=== PATIENT | female | born 1990 | race American Indian/Alaskan Native ===

== ENCOUNTER 2018-09-25 22:02 | Emergency (ER) | payer MEDICAID ==
[2018-09-25 22:09] VITALS: BP 137/86
--- NOTE | 2018-09-25 22:35 | Emergency Department Report ---
Blank Doc - Documentation Documentation: 28 y o female presents to ED cc of low back pain x 2 days no injuries, trauma, fall, worsens with certain mvt and laying on back denies dysuria, Ua/upt reevaluate
[2018-09-25 23:10] LABS: Bilirubin,Urine NEG (Negative); Blood,Urine NEG (Negative); Color,Urine Yellow (Yellow); Mucus,Urine FEW /HPF; Protein,Urine <15 mg/dL mg/dL (Negative); Urobilinogen,Urine < 2.0 mg/dL (<2.0)
[2018-09-25 23:27] LABS: HCG Qualitative,Urine Negative (Negative)
== END 2018-09-25 23:51 | disposition left against medical advice (07) ==
LOC: ED 22:02
DX: M54.5 Low back pain (principal); Z53.21 Procedure and treatment not carried out due to patient leaving prior to being seen by health care provider
CPT/HCPCS: 81001; 81025

== ENCOUNTER 2020-06-03 17:52 | Emergency (ER) | payer MEDICAID ==
[2020-06-03 18:36] VITALS: BP 152/90
== END 2020-06-03 22:00 | disposition left against medical advice (07) ==
LOC: ED 17:52
DX: L02.211 Cutaneous abscess of abdominal wall (principal); R63.1 Polydipsia; R35.0 Frequency of micturition; Z53.21 Procedure and treatment not carried out due to patient leaving prior to being seen by health care provider

== ENCOUNTER 2020-06-10 16:50 | Emergency (ER) | payer MEDICAID ==
[2020-06-10 17:18] VITALS: BP 134/80
--- NOTE | 2020-06-10 17:44 | Emergency Department Report ---
Abscess Boil HPI - HPI Chief Complaint: Skin/Abscess/Foreign Body Stated Complaint: PRIVATE AREA RISING/PAIN Time Seen by Provider: 06/10/20 17:41 Allergies/Adverse Reactions: Allergies Allergy/AdvReac Type Severity Reaction Status Date / Time No Known Allergies Allergy Unverified 09/25/18 22:03 ED Review of Systems ROS: Stated complaint: PRIVATE AREA RISING/PAIN Other details as noted in HPI ED Past Medical Hx - Past Medical History Previous Medical History?: No Hx Hypertension: No Hx CVA: No Hx Heart Attack/AMI: No Hx Congestive Heart Failure: No Hx Diabetes: No Hx Deep Vein Thrombosis: No Hx Pulmonary Embolism: No Hx GERD: No Hx Liver Disease: No Hx Renal Disease: No Hx Sickle Cell Disease: No Hx Arthritis: No Hx Headaches / Migraines: No Hx Seizures: No Hx Kidney Stones: No Hx Psychiatric Treatment: No Hx Asthma: No Hx COPD: No Hx Tuberculosis: No Hx Dementia: No Hx HIV: No - Surgical History Hx Coronary Stent: No Hx Open Heart Surgery: No Hx Pacemaker: No Hx Internal Defibrillator: No Hx Cholecystectomy: No Hx Appendectomy: No Hx Breast Surgery: No Additional Surgical History: right rotator cuff, 3 C-SECTIONS - Social History Smoking Status: Never Smoker Substance Use Type: None ED Abscess Boil Physical Exam - Exam General: Vital signs noted. No distress. Alert and acting appropriately. ED Course Vital Signs 06/10/20 16:58 Temperature 98.1 F Pulse Rate 91 H Respiratory 18 Rate Blood Pressure 134/80 O2 Sat by Pulse 95 Oximetry Critical care attestation.: If time is entered above; I have spent that time in minutes in the direct care of this critically ill patient, excluding procedure time. ED Disposition Condition: Stable
--- NOTE | 2020-06-10 17:55 | Emergency Department Report ---
Abscess Boil HPI - HPI Chief Complaint: Skin/Abscess/Foreign Body Stated Complaint: PRIVATE AREA RISING/PAIN Time Seen by Provider: 06/10/20 17:41 Duration: 3 Days Location: Perianal Severity: Moderate (Labia) History: Yes Pain, No Fever, No Purulent Drainage, No Numbness, No Foreign Body, No Previous History, No Insect Bite HPI: The patient was evaluated in the emergency department for symptoms described in the history of present illness. He/she was evaluated in the context of the global COVID-19 pandemic, which necessitated consideration that the patient might be at risk for infection with the virus that causes COVID-19. Institutional protocols and algorithms that pertain to the evaluation of patients at risk for COVID-19 are in a state of rapid change based on information released by regulatory bodies including the CDC and federal and state organizations. These policies and algorithms were followed during the patient's care in the emergency department. Please note that these policies, procedures and recommendations changed on a rapid basis. 30-year-old morbid obese female presents to the emergency room for abscess on her vaginal labia for about 2 to 3 days. Patient also reports she has increased symptoms urination and continuous yeast infections. Patient recently had a abscess to her abdomen. She does not currently have a primary care provider. She denies any past medical history reports no fevers no chills no nausea no vomiting. She does admit to weight loss. She currently takes no medications on a daily basis. She has no known drug allergies. Home Medications: Previous Rx's Medication Instructions Recorded Last Taken Type Blood Sugar Diagnostic [Test 1 each MC BID #100 strip 06/10/20 Unknown Rx Strips] Blood-Glucose Meter [Freestyle 1 each MC BID #1 each 06/10/20 Unknown Rx Precision Jason Meter] Doxycycline Hyclate 100 mg PO BID 10 Days #20 tablet. 06/10/20 Unknown Rx Fluconazole (Nf) [Diflucan TAB] 150 mg PO ONCE #2 tablet 06/10/20 Unknown Rx Ibuprofen [Motrin 800 MG tab] 800 mg PO Q8HR PRN #30 tablet 06/10/20 Unknown Rx Lancets [Lancets Ultra Thin] 1 each MC BID #100 each 06/10/20 Unknown Rx metFORMIN [Glucophage] 500 mg PO BID #60 tablet 06/10/20 Unknown Rx Allergies/Adverse Reactions: Allergies Allergy/AdvReac Type Severity Reaction Status Date / Time No Known Allergies Allergy Unverified 09/25/18 22:03 ED Review of Systems ROS: Stated complaint: PRIVATE AREA RISING/PAIN Other details as noted in HPI Comment: All other systems reviewed and negative ED Past Medical Hx - Past Medical History Previous Medical History?: No Hx Hypertension: No Hx CVA: No Hx Heart Attack/AMI: No Hx Congestive Heart Failure: No Hx Diabetes: No Hx Deep Vein Thrombosis: No Hx Pulmonary Embolism: No Hx GERD: No Hx Liver Disease: No Hx Renal Disease: No Hx Sickle Cell Disease: No Hx Arthritis: No Hx Headaches / Migraines: No Hx Seizures: No Hx Kidney Stones: No Hx Psychiatric Treatment: No Hx Asthma: No Hx COPD: No Hx Tuberculosis: No Hx Dementia: No Hx HIV: No - Surgical History Hx Coronary Stent: No Hx Open Heart Surgery: No Hx Pacemaker: No Hx Internal Defibrillator: No Hx Cholecystectomy: No Hx Appendectomy: No Hx Breast Surgery: No Additional Surgical History: right rotator cuff, 3 C-SECTIONS - Social History Smoking Status: Never Smoker Substance Use Type: None - Medications Home Medications: Home Medications Medication Instructions Recorded Confirmed Last Taken Type Blood Sugar Diagnostic [Test 1 each MC BID #100 strip 06/10/20 Unknown Rx Strips] Blood-Glucose Meter [Freestyle 1 each MC BID #1 each 06/10/20 Unknown Rx Precision Jason Meter] Doxycycline Hyclate 100 mg PO BID 10 Days #20 tablet.dr 06/10/20 Unknown Rx Fluconazole (Nf) [Diflucan TAB] 150 mg PO ONCE #2 tablet 06/10/20 Unknown Rx Ibuprofen [Motrin 800 MG tab] 800 mg PO Q8HR PRN #30 tablet 06/10/20 Unknown Rx Lancets [Lancets Ultra Thin] 1 each MC BID #100 each 06/10/20 Unknown Rx metFORMIN [Glucophage] 500 mg PO BID #60 tablet 06/10/20 Unknown Rx ED Abscess Boil Physical Exam - Exam General: Vital signs noted. No distress. Alert and acting appropriately. ED Course Vital Signs 06/10/20 16:58 Temperature 98.1 F Pulse Rate 91 H Respiratory 18 Rate Blood Pressure 134/80 O2 Sat by Pulse 95 Oximetry Critical Care Time: Yes (Diabetic teaching) Critical care time in (mins) excluding proc time.: 30 Critical care attestation.: If time is entered above; I have spent that time in minutes in the direct care of this critically ill patient, excluding procedure time. ED Medical Decision Making - Medical Decision Making 30-year-old morbid obese female presents to the emergency room for abscess on her vaginal labia for about 2 to 3 days. Patient also reports she has increased symptoms urination and continuous yeast infections. Patient recently had a abscess to her abdomen. She does not currently have a primary care provider. She denies any past medical history reports no fevers no chills no nausea no vomiting. She does admit to weight loss. She currently takes no medications on a daily basis. She has no known drug allergies. It was noted that patient had an elevated blood sugar of 288 in triage. Along with her symptoms of increased urination and thirst and weight loss as well as being morbid obese she fits the category of new onset diabetes. I discussed with patient that I will start her on Metformin to teaching of using a glucose meter with nurse hearing aid assistant. Also discussed with patient that her abscess on her labia we will treat her with conservative measures of doxycycline with Diflucan and to have her follow-up in 24 to 48 hours or follow-up with Dr. Gracia her primary care provider. Instructed patient to avoid sodas juices tea to only drink water and watch her carbohydrates. Discussed with patient that her blood sugars over 500 or states high that she needs to follow-up in the emergency room immediately. Also discussed with patient and given a referral to Dr. Zechariah Rosario outpatient physician. Patient was given a prescription for glucose meter lancets and glucose strips. Patient feels comfortable that she is able to check her blood sugar and understand the importance of follow-up. ED Disposition Clinical Impression: Severely overweight, Morbid obesity with BMI of 40.0-44.9, adult, Diabetes mellitus, new onset, Abscess of right genital labia Disposition: DC-01 TO HOME OR SELFCARE Is pt being admited?: No Does the pt Need Aspirin: No Condition: Stable Instructions: Diabetes Mellitus Type 2 in Adults (ED), Abscess (ED) Additional Instructions: Please take medications as prescribed. Use your blood sugar meter twice a day. If your blood sugar comes above 500 or states high to follow-up in the emergency room. It is very important for you to follow-up with a primary care provider for diabetic education and medication refill with chronic disease management. Very important for you to get an eye exam yearly a female exam yearly. You can use [id number] miconazole cream to the inner labia. Take your Diflucan after you have completed your antibiotics. Be sure to drink nothing but water. Avoid sodas juices high starchy foods. Prescriptions: Fluconazole (Nf) [Diflucan TAB] 150 mg PO ONCE #2 tablet Doxycycline Hyclate 100 mg PO BID 10 Days #20 tablet. Blood-Glucose Meter [Dot VNstyle Precision Jason Meter] 1 each MC BID #1 each metFORMIN [Glucophage] 500 mg PO BID #60 tablet Lancets [Lancets Ultra Thin] 1 each MC BID #100 each Ibuprofen [Motrin 800 MG tab] 800 mg PO Q8HR PRN #30 tablet PRN Reason: Pain , Severe (7-10) Blood Sugar Diagnostic [Test Strips] 1 each MC BID #100 strip Referrals: GIULIANA LEIJA MD [Staff Physician] - 3-5 Days [facility] [Provider Group] - 3-5 Days Forms: Work/School Release Form(ED)
== END 2020-06-10 18:36 | disposition home or self-care (01) ==
LOC: ED 16:50
DX: N76.4 Abscess of vulva (principal); E11.9 Type 2 diabetes mellitus without complications; E66.3 Overweight; Z68.41 Body mass index [BMI] 40.0-44.9, adult; Z98.890 Other specified postprocedural states; Z79.1 Long term (current) use of non-steroidal anti-inflammatories (NSAID); Z79.84 Long term (current) use of oral hypoglycemic drugs; Z79.899 Other long term (current) drug therapy
CPT/HCPCS: 82962; 99282

== ENCOUNTER 2020-08-18 20:40 | Emergency (ER) | payer MEDICAID ==
--- NOTE | 2020-08-18 21:28 | Emergency Department Report ---
Upper Extremity - HPI Stated Complaint: LEFT FINGER PAIN Time Seen by Provider: 08/18/20 21:31 Upper Extremity: Left Index Finger Occurred When: >5 Days Mechanism: Other (hang nail ) Symptoms: Yes Pain with Movement, Yes Swelling, No Deformity, No Limited Range of Movement, No Numbness, No Weakness, No Bruising/Ecchymosis, No Laceration or Abrasion Other History: pt presents for left index finger pain erythema swelling x 5 days, states she pulled a hang nail and pain and swelling since. pain is 5/10 throbbing achinhg. relieved by nothing , pain is exacerbated by palpation and movement ED Review of Systems ROS: Stated complaint: LEFT FINGER PAIN Other details as noted in HPI Constitutional: denies: chills, fever Eyes: denies: eye pain, eye discharge, vision change ENT: denies: ear pain, throat pain Respiratory: denies: cough, shortness of breath, wheezing Cardiovascular: denies: chest pain, palpitations Endocrine: no symptoms reported Gastrointestinal: as per HPI Genitourinary: denies: urgency, dysuria, discharge Musculoskeletal: other (left index fing pain swelling ) Skin: denies: rash, lesions Neurological: denies: headache, weakness, paresthesias Psychiatric: denies: anxiety, depression Hematological/Lymphatic: denies: easy bleeding, easy bruising ED Past Medical Hx - Past Medical History Hx Hypertension: No Hx CVA: No Hx Heart Attack/AMI: No Hx Congestive Heart Failure: No Hx Diabetes: No Hx Deep Vein Thrombosis: No Hx Pulmonary Embolism: No Hx GERD: No Hx Liver Disease: No Hx Renal Disease: No Hx Sickle Cell Disease: No Hx Arthritis: No Hx Headaches / Migraines: No Hx Seizures: No Hx Kidney Stones: No Hx Psychiatric Treatment: No Hx Asthma: No Hx COPD: No Hx Tuberculosis: No Hx Dementia: No Hx HIV: No - Surgical History Hx Coronary Stent: No Hx Open Heart Surgery: No Hx Pacemaker: No Hx Internal Defibrillator: No Hx Cholecystectomy: No Hx Appendectomy: No Hx Breast Surgery: No Additional Surgical History: right rotator cuff, 3 C-SECTIONS - Social History Smoking Status: Never Smoker Substance Use Type: None - Medications Home Medications: Home Medications Medication Instructions Recorded Confirmed Last Taken Type Blood Sugar Diagnostic [Test 1 each MC BID #100 strip 06/10/20 Unknown Rx Strips] Blood-Glucose Meter [Freestyle 1 each MC BID #1 each 06/10/20 Unknown Rx Precision Jason Meter] Doxycycline Hyclate 100 mg PO BID 10 Days #20 tablet. 06/10/20 Unknown Rx Fluconazole (Nf) [Diflucan TAB] 150 mg PO ONCE #2 tablet 06/10/20 Unknown Rx Ibuprofen [Motrin 800 MG tab] 800 mg PO Q8HR PRN #30 tablet 06/10/20 Unknown Rx Lancets [Lancets Ultra Thin] 1 each MC BID #100 each 06/10/20 Unknown Rx metFORMIN [Glucophage] 500 mg PO BID #60 tablet 06/10/20 Unknown Rx cephALEXin [Keflex] 500 mg PO Q8HR 7 Days #21 cap 08/18/20 Unknown Rx traMADoL [Ultram] 50 mg PO Q6HR PRN #12 tablet 08/18/20 Unknown Rx Upper Extremity Exam - Exam General: Vital signs noted. No distress. Alert and acting appropriately. Head and Torso: No HEENT Abnormality, No Neck Tenderness, No Chest/Lungs Abnormality, No Abdominal Tenderness, No Back Tenderness Shoulder Exam: Yes Normal Range of Motion in Shoulder, No Shoulder Tenderness, No Clavicle Tenderness, No Shoulder Deformity, No AC Joint Tenderness Arm Exam: No Arm/Humerus Tenderness, No Arm Deformity Elbow: No Elbow Tenderness, No Normal Range of Motion in Elbow, No Elbow Deformity Forearm: No Forearm Tenderness, No Forearm Deformity, No Pain with Pronation, No Pain with Supination Wrist: Yes Normal ROM in Wrist, No Wrist Tenderness, No Wrist Deformity, No Snuffbox Tenderness, No Pain with Axial Thumb Compression Hand: Yes Digit Tenderness (left index erythem swelling finger tip ), Yes Normal ROM in Digit(s), No Hand Tenderness, No Hand Deformity, No Digit(s) Deformity, No Tendon Dysfunction CMS Exam: No Broken Skin, No Normal Distal Pulses, No Normal Capillary Refill, No Normal Distal Sensation - I & D Left Finger Type of Procedure: Simple (left finger tip parnychia) Site: left finger tip Blade Size: 11 I & D Procedure: betadine prep, sterile dressing applied Progress: left finger tip paronychia , site cleaned with betadine solution , anesthesia via digital block, incision with 11 blade scaple x 1, to nail bed, scant purulent and blood drainage, pressure relieve, nail bed probed with sterile cotton applicator, wound irrigate dwith 10 cc steril saline, sterille dressing applied, all bleeding controlled. ,pt tolerated procedure with minimal distress. given wound care instructions verbalized understanding of same. ED Medical Decision Making - Medical Decision Making left finger paronychia , for I&D , all bleeding controlled, sterile dressing intact , no nail damage, pt tolerated with minimal distress , pt dc'd to home with rx, will follow up with pc pin 2-3 days for wound check. pt dc'd in stable condition at this time. Critical care attestation.: If time is entered above; I have spent that time in minutes in the direct care of this critically ill patient, excluding procedure time. ED Disposition Clinical Impression: Paronychia Disposition: DC-01 TO HOME OR SELFCARE Is pt being admited?: No Does the pt Need Aspirin: No Condition: Stable Instructions: Paronychia, Fingertip Infection Prescriptions: cephALEXin [Keflex] 500 mg PO Q8HR 7 Days #21 cap traMADoL [Ultram] 50 mg PO Q6HR PRN #12 tablet PRN Reason: Pain Referrals: EDEN CAMPOS MD [Staff Physician] - 3-5 Days Forms: Work/School Release Form(ED) Time of Disposition: 21:44
[2020-08-18 21:52] VITALS: BP 149/92
[2020-08-18] MEDS ORDERED: traMADol 50 MG TAB PO ONE (22:00)
== END 2020-08-18 22:05 | disposition home or self-care (01) ==
LOC: ED 20:40
DX: L03.012 Cellulitis of left finger (principal); Z98.890 Other specified postprocedural states; Z79.1 Long term (current) use of non-steroidal anti-inflammatories (NSAID); Z79.899 Other long term (current) drug therapy
CPT/HCPCS: 99282